=== PATIENT | male | born 1990 | race Caucasian/White ===

== ENCOUNTER 2016-10-28 23:02 | Emergency (ER) | payer OTHER | END 2016-10-29 00:48 | disposition home or self-care (01) | LOC: ER 23:02 | DX: S82.55XA Nondisplaced fracture of medial malleolus of left tibia, initial encounter for closed fracture (principal); S82.832A Other fracture of upper and lower end of left fibula, initial encounter for closed fracture; F90.9 Attention-deficit hyperactivity disorder, unspecified type; X50.1XXA Overexertion from prolonged static or awkward postures, initial encounter; Y93.62 Activity, american flag or touch football ==